=== PATIENT | male | born 1970 | race Caucasian/White ===

== ENCOUNTER 2016-10-16 11:09 | Emergency (ER) | payer MEDICARE ==
[~2016-10-16] VITALS: Ht 172.7 cm; Wt 79.0 kg
[~2016-10-16 11:09] MED LIST: BUPR1PAT2 TD; GABA800T PO; OXYC20 PO; TRAZ-144 PO
[2016-10-16] MEDS ORDERED: ACETAMINOPHEN 325 MG TABLET PO ONE (14:45)
[2016-10-16] MEDS ORDERED: LIDOCAINE HCL/PF 1% 2 ML VIAL IM ONE (16:30)
[2016-10-16] MEDS ORDERED: CefTRIAXone SODIUM 1 GM/VIAL IM ONE (16:30)
[2016-10-16 16:44] VITALS: BP 135/71
== END 2016-10-16 16:59 | disposition home or self-care (01) ==
LOC: EMS 11:11
DX: J06.9 Acute upper respiratory infection, unspecified (principal); L02.511 Cutaneous abscess of right hand; L03.113 Cellulitis of right upper limb; F12.90 Cannabis use, unspecified, uncomplicated; F17.210 Nicotine dependence, cigarettes, uncomplicated
CPT/HCPCS: 71020; 73130; 96372; 99284; J0696; J3490

== ENCOUNTER 2016-10-30 11:09 | Emergency (ER) | payer MEDICARE ==
[~2016-10-30] VITALS: Ht 172.7 cm; Wt 76.8 kg
[2016-10-30] MEDS ORDERED: BACITRACIN 0.9 GM PACKET OINTMENT TP ONE (13:00)
[2016-10-30 13:37] VITALS: BP 149/84
== END 2016-10-30 13:40 | disposition home or self-care (01) ==
LOC: EMS 11:12
DX: M79.641 Pain in right hand (principal); F12.90 Cannabis use, unspecified, uncomplicated; F17.210 Nicotine dependence, cigarettes, uncomplicated
CPT/HCPCS: 99284

== ENCOUNTER 2017-01-06 13:14 | Emergency (ER) | payer MEDICARE ==
[~2017-01-06] VITALS: Ht 172.7 cm; Wt 68.0 kg
[2017-01-06 16:39] VITALS: BP 160/92
[2017-01-06] MEDS ORDERED: KETOROLAC TROMETHAMINE 60 MG/2 ML VIAL IM ONE (17:15)
== END 2017-01-06 18:06 | disposition home or self-care (01) ==
LOC: EMS 13:15
DX: M54.5 Low back pain (principal); F12.10 Cannabis abuse, uncomplicated; F17.210 Nicotine dependence, cigarettes, uncomplicated
CPT/HCPCS: 96372; 99283; J1885

== ENCOUNTER 2018-03-10 11:42 | Emergency (ER) | payer MEDICARE ==
[~2018-03-10] VITALS: Ht 172.7 cm; Wt 79.5 kg
[2018-03-10 12:32] VITALS: BP 126/74
[2018-03-10] MEDS ORDERED: LIDOCAINE 5% TRANSDERMAL PATCH TD ONE (12:45)
[2018-03-10] MEDS ORDERED: KETOROLAC TROMETHAMINE 30 MG/ML VIAL IM ONE (13:00)
== END 2018-03-10 13:14 | disposition home or self-care (01) ==
LOC: EMS 11:44
DX: G89.29 Other chronic pain (principal); M54.5 Low back pain; R03.0 Elevated blood-pressure reading, without diagnosis of hypertension; F17.210 Nicotine dependence, cigarettes, uncomplicated; F12.90 Cannabis use, unspecified, uncomplicated
CPT/HCPCS: 96372; 99283; J1885